=== PATIENT | female | born 1980 | race Caucasian/White ===

== ENCOUNTER 2016-08-18 18:52 | Emergency (ER) | payer SELFPAY ==
[~2016-08-18] VITALS: Ht 162.6 cm; Wt 117.9 kg
[2016-08-18 19:41] VITALS: BP 150/87
--- NOTE | 2016-08-18 20:05 | PHYS DOC ---
Past Medical History Past Medical History: Hypothyroid Past Surgical History: Tubal ligation Alcohol Use: None Drug Use: None Adult General Chief Complaint Chief Complaint: DENTAL PROBLEM HPI HPI Patient is a 35 year old female with history of hypothyroidism who presents with left upper gum dental pain that began today after she broke a tooth. Patient denies any fever or trismus. She states she is from out of town visiting staying at [facility] Review of Systems Review of Systems Constitutional: Denies fever or chills [] Eyes: Denies change in visual acuity, redness, or eye pain [] HENT: Dental pain Musculoskeletal: Denies back pain or joint pain [] Integument: Denies rash or skin lesions [] Neurologic: Denies headache, focal weakness or sensory changes [] Endocrine: Denies polyuria or polydipsia [] Allergies Allergies Allergies Coded Allergies Type Severity Reaction Last Updated Verified aspirin Allergy Unknown 08/18/16 Yes codeine Allergy Unknown nausea 08/18/16 Yes Physical Exam Physical Exam Constitutional: Well developed, well nourished, no acute distress, non-toxic appearance. [] HENT: Normocephalic, atraumatic, bilateral external ears normal, oropharynx moist, no oral exudates, nose normal. [] Scattered dental carriers in different stages tooth #8 and 9 are broken and severely decayed Skin: Warm, dry, no erythema, no rash. [] Back: No tenderness, no CVA tenderness. [] Extremities: No tenderness, no cyanosis, no clubbing, ROM intact, no edema. [] Neurologic: Alert and oriented X 3, normal motor function, normal sensory function, no focal deficits noted. [] Psychologic: Affect normal, judgement normal, mood normal. [] Current Patient Data Vital Signs Vital Signs Date Time Temp Pulse Resp B/P (MAP) Pulse Ox O2 Delivery O2 Flow Rate FiO2 08/18/16 19:41 98.7 90 16 96 Room Air 98.7 EKG EKG [] Radiology/Procedures Radiology/Procedures [] Course & Med Decision Making Course & Med Decision Making Pertinent Labs and Imaging studies reviewed. (See chart for details) Patient has infected dental caries. She is from out of town visiting of the [facility]. She didn't clindamycin, and [place] with restrictions on it not to be filled if patient does not fill the clindamycin or has filled another prescription for narcotic pain medicine in the last 7 days Steven Disclaimer Steven Disclaimer This electronic medical record was generated, in whole or in part, using a voice recognition dictation system. Departure Departure Impression: Primary Impression: Dentalgia Additional Impression: Infected dental caries Disposition: 01 HOME, SELF-CARE Condition: STABLE Patient Instructions: Dental Caries Additional Instructions: You were seen for dental infection. Complete your antibiotics. Follow-up with your dentist as soon as possible. Scripts Hydrocodone/Apap 5-325 (NORCO 5-325 TABLET) 1 Each Tablet 1-2 TAB PO Q4-6HRS, #12 TAB MUST FILL RX FOR CLINDAMYCIN BEFORE NORCO. DO NOT FILL HER PRESCRIPTION IF SHE HAS FILLED ANY NARCOTIC MEDICINES IN THE LAST SEVEN DAYS Prov: AGUSTIN JOYA APRN 08/18/16 Clindamycin Hcl (CLINDAMYCIN HCL) 150 Mg Capsule 3 CAP PO TID, #90 CAP Prov: AGUSTIN JOYA APRN 08/18/16 Problem Qualifiers AGUSTIN JOYA APRN August 18, 2016 20:05
[2016-08-18] MEDS ORDERED: HYDR-971 PO (20:12)
[2016-08-18] MEDS ORDERED: CLIN-44 PO (20:12)
== END 2016-08-18 20:30 | disposition home or self-care (01) ==
LOC: ER 20:27
DX: K02.9 Dental caries, unspecified (principal); E03.9 Hypothyroidism, unspecified; Z88.5 Allergy status to narcotic agent; Z88.6 Allergy status to analgesic agent
CPT/HCPCS: 99283